=== PATIENT | male | born 1935 | race Caucasian/White ===

== ENCOUNTER 2019-10-29 09:22 | Outpatient (CLI) | payer MEDICARE, SELFPAY ==
--- NOTE | 2019-10-29 09:35 | USCV_ITS ---
oJse Jacinto Age: 84 Gender: M : 1935 Exam Date: 10/29/2019 09:32 Ordering Phys: Flory Bedoya MD Technologist: Exam Location: [facility] – [place] Indication: FOOT PAIN RIGHT LEFT Brachial 183.00 mmHg Brachial 173.00 mmHg Pressure (mmHg) Waveform Pressure (mmHg) Waveform 180.00 BOROUGH COORDINATOR 180.00 164.00 DPA 198.00 0.98 Ankle/Brachial Index 1.08 112.00 Pre-Exercise Toe Pressure 91.00 0.61 Pre-Exercise Toe/Brachial Index 0.50 FINDINGS Normal resting ABIs bilaterally Slightly diminished resting TBIs bilaterally CONCLUSIONS Features of mild peripheral artery disease bilaterally No previous studies available for comparison. Dr Barney Jett MD FAC (Electronically Signed) Final Date: 29 October 2019 19:58 S
--- NOTE | 2019-10-29 09:35 | XRR_ITS ---
PROCEDURE INFORMATION: Exam: XR Left Foot Complete Exam date and time: 10/29/2019 9:51 AM Age: 84 years old Clinical indication: Left; Patient HX: HX of skin cancer. C/O weak pulse/l foot pain TECHNIQUE: Imaging protocol: XR Left foot. Views: 3 or more views. COMPARISON: No relevant prior studies available. FINDINGS: Bones/joints: Hindfoot -midfoot and midfoot-forefoot articulations normal. Metatarsals and phalanges without an acute process. Subtalar and tibiotalar joint normal. Moderate degenerative changes at the first metatarsal phalangeal joint. Soft tissues: Normal. 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
== END 2019-10-29 09:23 | disposition home or self-care (01) ==
LOC: RAD 09:25
PROVIDERS: Family Provider Family Medicine; Visit Provider Family Medicine
DX: M79.672 Pain in left foot (principal); R09.89 Other specified symptoms and signs involving the circulatory and respiratory systems; Z85.828 Personal history of other malignant neoplasm of skin
CPT/HCPCS: 73630; 93922

== ENCOUNTER 2022-09-13 12:09 | Outpatient (CLI) | payer MEDICARE, SELFPAY ==
--- NOTE | 2022-09-13 12:21 | CT_ITS ---
WS: [id number] CT HEAD TECHNIQUE: Noncontrast CT of the head obtained from the skullbase to the vertex. CLINICAL INFORMATION: NORMAL PRESSURE HYDROCEPHALUS, PERSENCE OF SEREBROSPINAL FLU COMPARISON: MRI 2017 DLP: 1195.[address] scans at [facility] use at least one of these dose optimization techniques: automated e xposure control; mA and/or kV adjustment per patient size (includes targeted exams where dose is matc hed to clinical indication); or iterative reconstruction. FINDINGS: No evidence of intracranial hemorrhage or mass effect. Ventricular system and basal cisterns are renteria nt. RIGHT parietal shunt catheter with tip in the LEFT frontal horn. No evidence of progressive hydro cephalus. Moderate dilatation of ventricular system is unchanged. Vascular calcification. Moderate small vessel changes with moderate parenchymal volume loss. No extra-axial fluid collections . No evidence of mass or mass effect. Paranasal sinuses and mastoid air cells are well aerated. .Normal visualized soft tissues. CT/CT head wo con* [id number] IMPRESSION: 1. No evidence of intracranial hemorrhage or mass effect. 2. Moderate small vessel changes. Moderate parenchymal volume loss. 3. RIGHT parietal shunt catheter with tip in the LEFT frontal horn. 4. Ventricular size is unchanged. No evidence of progressive hydrocephalus. 5. Vascular calcification.
--- NOTE | 2022-09-13 12:23 | USCV_ITS ---
Jacinto Garcia Age: 86 Gender: M : 1935 Exam Date: 09/13/2022 12:35 Ordering Phys: Flory Bedoya MD Technologist: Samuel Mendes Exam Location: [facility] – [place] Indication: Localized Edema RIGHT LEFT Brachial 126.00 mmHg Brachial 127.00 mmHg Pressure (mmHg) Waveform Pressure (mmHg) Waveform 145.00 ENTRY LEVEL SOFTWARE DEVELOPER 133.00 118.00 DPA 150.00 1.14 Ankle/Brachial Index 1.18 84.00 Pre-Exercise Toe Pressure 82.00 0.66 Pre-Exercise Toe/Brachial Index 0.65 FINDINGS Resting ALVA 1.14 on the right and 1.18 on the left. Resting TBI 0.66 on the right and 0.65 on the left CONCLUSIONS Normal resting ABIs bilaterally Minimally diminished resting TBIs bilaterally, suggesting mild peripheral artery disease Dr Barney Jett MD [facility] (Electronically Signed) Final Date: 13 Sep 2022 23:49 S
== END 2022-09-13 12:10 | disposition home or self-care (01) ==
LOC: RAD 12:14
PROVIDERS: PCP Family Medicine; Visit Provider Family Medicine
DX: R60.0 Localized edema (principal); G91.2 (Idiopathic) normal pressure hydrocephalus; R09.89 Other specified symptoms and signs involving the circulatory and respiratory systems; R26.89 Other abnormalities of gait and mobility; Z98.2 Presence of cerebrospinal fluid drainage device
CPT/HCPCS: 70450; 93922